=== PATIENT | female | born 1990 | race Caucasian/White ===

== ENCOUNTER 2022-10-28 08:01 | Outpatient (CLI) | payer OTHER, SELFPAY ==
[2022-10-28 18:59] LABS: Basophils Absolute Auto 0.1 K/mm3 (0.0-0.1); Eosinophils Absolute Auto 0.2 K/mm3 (0-0.3); Eosinophils Percent Auto 3.7 % (0-4.4); Hematocrit 42.6 % (37.0-47.0); Immature Granulocyte Absolute 0.01 K/mm3 (0.00-0.031); Immature Granulocyte Percent A 0.2 % (0-0.5); Lymphocytes Absolute Auto 1.55 K/mm3 (0.9-3.2); Lymphocytes Percent Auto 30.1 % (18.3-44.2); Mean Corpuscular HGB Conc 32.9 g/dl (32-36); Mean Corpuscular Hemoglobin 31.5 pg (26-34); Mean Corpuscular Volume 95.9 fl (80-100); Mean Platelet Volume 9.3 fl (7.4-10.4); Monocytes Absolute Auto 0.4 K/mm3 (0.1-0.6); Monocytes Percent Auto 7.8 % (2.6-8.5); Neutrophils Percent Auto 57.2 % (45.5-73.1); Platelet Count Result 249 k/mm3 (150-375); Red Blood Count 4.44 M/mm3 (4.2-5.4); Red Cell Distribution Width 12.1 % (11.5-14.5); White Blood Count 5.2 K/mm3 (4.5-10.0)
[2022-10-28 19:04] LABS: Anion Gap 8 mmol/L (8-16); Blood Urea Nitrogen 15 mg/dL (7-17); Carbon Dioxide 30 mmol/L (22-30); Chloride 102 mmol/L (98-107); Cholesterol 158 mg/dL (0-200); Estimated Glomerular Filt Rate > 60; Glucose 62 mg/dL (65-110); HDL Direct 53 mg/dL; Potassium 4.5 mmol/L (3.4-5.0); Sodium 140 mmol/L (137-145); Triglycerides 143 mg/dL (<150)
[2022-10-28 19:15] LABS: LDL Cholesterol Direct 81 mg/dL
[2022-10-28 19:36] LABS: Vitamin D 25 Hydroxy 36.9 ng/mL
[2022-11-03 06:19] LABS: Thyroglobulin 13.7 ng/mL (2.8-40.9); Thyroglobulin Antibodies 3 IU/mL (<=1); Thyroid Peroxidase Antibodies 69 IU/mL (<9)
== END 2022-10-28 08:02 | disposition home or self-care (01) ==
LOC: ANHGOSHLAB 08:03
PROVIDERS: PCP Nurse Practitioner Family; Visit Provider Nurse Practitioner Family
DX: E06.3 Autoimmune thyroiditis (principal); F31.9 Bipolar disorder, unspecified; Z98.890 Other specified postprocedural states; Z98.891 History of uterine scar from previous surgery
CPT/HCPCS: 36415; 80048; 80061; 82306; 82607; 84432; 84443; 85025; 86376; 86800

== ENCOUNTER 2023-03-16 08:28 | Outpatient (CLI) | payer OTHER, SELFPAY ==
[2023-03-16 11:56] LABS: Anion Gap 7 mmol/L (8-16); Blood Urea Nitrogen 14 mg/dL (7-17); Carbon Dioxide 26 mmol/L (22-30); Chloride 103 mmol/L (98-107); Estimated Glomerular Filt Rate > 60; Glucose 80 mg/dL (65-110); Potassium 4.7 mmol/L (3.4-5.0); Sodium 136 mmol/L (137-145)
== END 2023-03-16 08:29 | disposition home or self-care (01) ==
LOC: ANHGOSHLAB 08:30
PROVIDERS: PCP Nurse Practitioner Family; Visit Provider Nurse Practitioner Family
DX: E06.3 Autoimmune thyroiditis (principal); F31.9 Bipolar disorder, unspecified; G40.909 Epilepsy, unspecified, not intractable, without status epilepticus
CPT/HCPCS: 36415; 80048; 84443